=== PATIENT | female | born 1945 | race Caucasian/White ===

== ENCOUNTER → 2016-08-09 | Outpatient (CLI) | payer MEDICARE, BC ==
[2016-08-09 13:10] LABS: INR 2.2; PROTHROMBIN TIME (PATIENT) 23.8 SECONDS (9.6-11.5)
== END | disposition home or self-care (01) ==
LOC: CLAB 12:20
PROVIDERS: Orthopaedic Surgery
DX: Z51.81 Encounter for therapeutic drug level monitoring (principal); Z96.651 Presence of right artificial knee joint; Z79.01 Long term (current) use of anticoagulants
CPT/HCPCS: 36415; 85610